=== PATIENT | female | born 1950 | race Caucasian/White ===

== ENCOUNTER 2024-02-08 07:08 | Day surgery (SDC) | payer MEDICARE, OTHER, SELFPAY ==
[2024-02-06 11:12] VITALS: BMI 29.5
[2024-02-08 07:18] VITALS: BMI 28.5
[2024-02-08 07:35] VITALS: BP 142/93; PULSE 76; RESP 16; TEMP 35.6; O2SAT 97
--- NOTE | 2024-02-08 07:41 | P.CONAN_ITS ---
FORMERLY [facility] Past Medical History Medical History Varicose veins of both lower extremities Positive skin test for tuberculosis Apnea Osteoarthritis Osteopenia History of positive PPD Carotid arterial disease Diverticulosis Hyperlipidemia HTN (hypertension) Surgical History Surgical History History of surgery Hx of tonsillectomy History of total right knee replacement Hx of foot surgery H/O colonoscopy Social History Social History Household Members: Spouse Patient Tobacco Use Status: Never used Tobacco Use of substances other than those prescribed or required for medical reasons: No Are you DNR?: No Advance Directives: No Advance Directives Information Provided: Yes Advance Directives on File: No Recently lost weight without trying: No Nutrition Risks: No Nutritional Risk Patient : No Meds Allergies Allergy/AdvReac Type Severity Reaction Status Date / Time No Known Allergies Allergy Verified 02/06/24 11:39 Home Medications ?Medication ?Instructions ?Recorded ?Confirmed ?Last Taken ?Type losartan 25 mg tablet 25 mg PO DAILY 02/06/24 02/06/24 Unknown History Exam Height,Weight and Vital Signs: Height 5 ft 6 in Weight 80.059 kg Last Vital Signs Temp 96.1 F L 02/08/24 07:35 Pulse 76 02/08/24 07:35 Resp 16 02/08/24 07:35 BP 142/93 H 02/08/24 07:35 Pulse Ox 97 02/08/24 07:35 O2 Del Method Room Air 02/08/24 07:35
[2024-02-08] MEDS: Lactated Ringers 1,000 ML 50 ML IVCONT (07:54)
--- NOTE | 2024-02-08 08:02 | MHC.SHP ---
Pre-Procedural Eval Section A - 24 Hr Update-Section A only Date of Service: 02/08/24 Section B - Complete if H&P > 30 days Chief Complaint: screening Details of Present Illness: see H&P no changes Relevant Family History (Specify if Yes): No Relevant Social History: None Present Medications: see Short Stay Collaborative assessment Medical History: No relevant PMH Allergies: Allergies Allergy/AdvReac Type Severity Reaction Status Date / Time No Known Allergies Allergy Verified 02/06/24 11:39 Review of Systems Sugical H&P ROS: Negative: Constitution, Cardiovascular, Respiratory, Neurological, Psychiatric, Hem-Onc, Allergic/Immunologic, Gastrointestinal, Genitourinary, Musculoskeletal, Integumentary, Endocrine and Eyes/Ears/Nose/Throat Exam Surgical H&P Exam: Normal: HEENT, Normal: Heart, Normal: Lungs, Normal: Extremities, Normal: Abdomen, Normal: Skin and Normal: Neurological Plan Diagnosis/Plan: Unchanged I have reviewed the history and physical and performed a pertinent physical examination on my patient. No changes have occurred unless specified. Time Spent With Patient Time: Total time managing care of this patient today ____ minutes.
[2024-02-08 08:27] VITALS: BP 120/67; PULSE 70; RESP 12; TEMP 36.1; O2SAT 97
[2024-02-08 08:42] VITALS: BP 136/81; PULSE 70; RESP 16; O2SAT 97
--- NOTE | 2024-02-08 08:51 | OP_ITS ---
DATE OF SERVICE: 02/08/2024 SURGEON: Eren Kaur MD INDICATIONS: Colon cancer screening. PREOPERATIVE DIAGNOSIS: POSTOPERATIVE DIAGNOSIS: PROCEDURE PERFORMED: Colonoscopy to the terminal ileum. ESTIMATED BLOOD LOSS: COMPLICATIONS: ANESTHESIA: Monitored anesthesia care. ASSISTANTS: SPECIMENS: DESCRIPTION OF PROCEDURE: A history and physical was performed. The risks and benefits of the procedure were explained to the patient and informed consent was obtained. The patient was placed in the left lateral decubitus position. A digital rectal exam was performed and was found to be normal. The Olympus pediatric video colonoscope was introduced into the rectum and advanced to the cecum. The cecum was identified by transillumination, palpation, and identification of the ileocecal valve. Examination was performed and the scope was removed. She tolerated the procedure well and was returned to recovery area in stable condition. FINDINGS: The terminal ileum was examined and appeared normal. The visualized colonic mucosa was normal. The quality of prep was good. No polyps were identified. There was mild sigmoid diverticulosis. Retroflexed examination showed some moderate-sized internal hemorrhoids. IMPRESSION: Normal colonoscopy. RECOMMENDATIONS: 1. Follow up as needed. 2. Repeat colonoscopy is recommended in 10 years for average-risk individuals. This is optional based on age. MD JOHN Ma/SARAIL / [id number]
[2024-02-08 08:57] VITALS: BP 141/88; PULSE 69; RESP 17; TEMP 36.4; O2SAT 99
== END 2024-02-08 09:46 | disposition home or self-care (01) ==
PROVIDERS: PCP Internal Medicine Geriatric Medicine; Visit Provider Internal Medicine Gastroenterology
PROC: 0DJD8ZZ Inspection of Lower Intestinal Tract, Via Natural or Artificial Opening Endoscopic (ICD-10-PCS; CPT 45378; principal; 2024-02-08 08:20)
DX: Z12.11 Encounter for screening for malignant neoplasm of colon (principal); K57.30 Diverticulosis of large intestine without perforation or abscess without bleeding; K64.8 Other hemorrhoids; Z86.0101 Personal history of adenomatous and serrated colon polyps; I10 Essential (primary) hypertension; E78.5 Hyperlipidemia, unspecified; Z79.899 Other long term (current) drug therapy
CPT/HCPCS: G0105; J2003; J2704